=== PATIENT | male | born 1990 | race Caucasian/White ===

== ENCOUNTER 2016-10-26 23:42 | Inpatient (IN) | payer OTHER ==
[~2016-10-26] VITALS: Ht 182.9 cm; Wt 94.2 kg
[2016-10-27 01:53] LABS: MEAN CORPUSCULAR HEMOGLOBIN 28.3 pg (27.0-33.0); MEAN CORPUSCULAR HGB CONC 34.5 g/dl (32.0-36.5); MEAN CORPUSCULAR VOLUME 81.9 fl (80.0-96.0); RED CELL DISTRIBUTION WIDTH 12.5 % (11.5-14.5)
[2016-10-27 02:22] LABS: ALBUMIN 4.2 GM/DL (3.2-5.2); ALKALINE PHOSPHATASE 76 U/L (45-117); ALT/SGPT 46 U/L (12-78); ANION GAP 8 MEQ/L (8-16); AST/SGOT 33 U/L (15-37); BILIRUBIN,DIRECT < 0.1 MG/DL (0.0-0.2); BILIRUBIN,TOTAL 0.3 MG/DL (0.2-1.0); BLOOD UREA NITROGEN 9 MG/DL (7-18); CALCIUM LEVEL 8.6 MG/DL (8.5-10.1); CARBON DIOXIDE LEVEL 30 MEQ/L (21-32); CHLORIDE LEVEL 106 MEQ/L (98-107); CREATININE FOR GFR 1.07 MG/DL (0.70-1.30); GLOMERULAR FILTRATION RATE > 60.0 (>60); GLUCOSE, FASTING 104 MG/DL (70-105); POTASSIUM SERUM 4.3 MEQ/L (3.5-5.1); SODIUM LEVEL 144 MEQ/L (136-145); TOTAL PROTEIN 7.7 GM/DL (6.4-8.2)
[2016-10-27 03:03] LABS: AMPHETAMINES LEVEL URINE NEGATIVE (NEGATIVE)
[2016-10-27 03:04] LABS: BENZODIAZEPINES URINE NEGATIVE (NEGATIVE); COCAINE METABOLITE URINE NEGATIVE (NEGATIVE); CONTROL LINE INT CTR LINE PRESENT; METHADONE URINE NEGATIVE (NEGATIVE); OPIATES URINE NEGATIVE (NEGATIVE); TRICYCLIC ANTIDEPRESS URINE NEGATIVE (NEGATIVE)
[2016-10-27] MEDS ORDERED: ACETAMINOPHEN TAB 650MG DOSE (2X325MG) As Ordered ONE (09:45)
[2016-10-27] MEDS ORDERED: IBUP800T23 PO (10:48)
--- NOTE | 2016-10-27 15:13 | EDDOCDS ---
Physician Documentation [facility] Name: John Conti Age: 26 yrs Sex: Male : 1990 Arrival Date: 10/26/2016 Time: 23:42 Bed [facility] Private MD: Disposition: 10/27/16 10:36 Hospitalization ordered by Mauri Garcia for Inpatient Admission. Preliminary diagnosis is Major depressive disorder, single episode, moderate. - Bed requested for Admit. - Status is Inpatient Admission. me3 - Condition is Stable. - Problem is new. - Symptoms are unchanged. Historical: - Allergies: No known drug Allergies; - Home Meds: 1. Zoloft 25 mg Oral tab Unknown - PMHx: Anxiety; anger; - PSHx: Hip Arthroplasty, Left; bilateral ankles; - Social history: Smoking status: Patient states was never smoker of tobacco. Patient uses alcohol patient/guardian reports recent binge of alcohol consumption. No barriers to communication noted, The patient speaks fluent Dutch. - Family history: Not pertinent. - : The pt / caregiver states he / she is not on anticoagulants. Home medication list is obtained from the patient. - Exposure Risk Screening:: None identified. Vital Signs: 10/26 23:44 BP 132 / 88; Pulse 84; Resp 18; Temp 97.1(T); Pulse Ox 96% ; Weight 88.45 kg / 195 lbs; mas Height 6 ft. 0 in. (182.88 cm); Pain 0/10; 10/27 03:40 BP 144 / 85; Pulse 88; Resp 18; Temp 96.1(T); Pulse Ox 97% ; Pain 0/10; mas 10:30 Pain 0/10; me3 14:21 BP 143 / 91; Pulse 85; Resp 18; Temp 97.6(O); Pulse Ox 97% on R/A; Pain 2/10; jml1 15:12 BP 148 / 87; Pulse 77; Resp 18; Temp 96.2; Pulse Ox 98% ; me3 10/26 23:44 Body Mass Index 26.45 (88.45 kg, 182.88 cm) [facility] MDM: 01:37 Consult PFS/PSA/[employer] ordered. mm11 01:37 Consult PFS/PSA/[employer]: Patient's case requires discussion with on-call mm11 Psychiatrist ordered. 01:37 PSA/PFS to call Nursing Assistant Professor Of Theater, to enter patient data on [place] Safe Act if patient mm11 involuntarily admitted or transferred for SI or HI ordered. 01:37 Confirm accurate psychiatric medication list and times of last dosage ordered. mm11 01:37 Detain Pt Until Medically/PFS Cleared ordered. mm11 01:37 Acetaminophen Level Ordered. EDMS 01:37 Basic Metabolic Profile Ordered. EDMS 01:37 Complete Blood Count Ordered. EDMS 01:37 Drug Eval Toxicology ED Only Ordered. EDMS 01:37 Ethyl Alcohol (ethanol) Ordered. EDMS 01:37 Liver Profile Ordered. EDMS 01:37 Salicylate Level Ordered. EDMS 01:37 Thyroid Stimulating Hormone Ordered. EDMS 03:09 Acetaminophen Level Reviewed. mm11 03:09 Ethyl Alcohol (ethanol) Reviewed. mm11 03:09 Salicylate Level Reviewed. mm11 03:09 Thyroid Stimulating Hormone Reviewed. mm11 03:09 Basic Metabolic Profile Reviewed. mm11 03:09 Complete Blood Count Reviewed. mm11 03:09 Drug Eval Toxicology ED Only Reviewed. mm11 03:09 Liver Profile Reviewed. mm11 04:17 REGULAR DIET PLASTIC CASTANEDA+DIET ordered. EDMS 04:22 Financial registration complete. h 04:25 [facility] Payment Agreement was scanned into [employer] and attached to record. [facility] 09:41 Acetaminophen Tablet 650 mg PO once ordered. me3 09:49 Consult PFS/PSA/[employer] complete. ca 09:49 Consult PFS/PSA/[employer]: Patient's case requires discussion with on-call ca Psychiatrist complete. 09:49 PSA/PFS to call Nursing Assistant Professor Of Theater, to enter patient data [place] if patient ca involuntarily admitted or transferred for SI or HI complete. 11:16 REGULAR DIET PLASTIC CASTANEDA+DIET ordered. EDMS 12:03 Admit to [facility]: ordered. EDMS 13:46 [facility] Legal paperwork was scanned into [employer] and attached to record. ml4 Administered Medications: 09:46 Drug: Acetaminophen 650 mg [acetaminophen 325 mg tablet (2 tabs)] Route: PO; me3 10:30 Follow up: Pain 0/10 Adult; Response: Pain is resolved me3 Signatures: Dispatcher [employer] EDMS Donna Jimenez MD MD sd1 Ale Allen, PSA PSA Tiff Gil LPN LPN me3 Lupe Gutierrez, PSA PSA ml4 Jose Carlos Valera, DO DO mm11 Azalea Lee Amber,RN RN af2 The chart was reviewed and I authenticate all verbal orders and agree with the evaluation and treatment provided.Attachments: 04: [facility] Payment Agreement calvin MTDD
--- NOTE | 2016-10-27 15:13 | EDDOCDS ---
Nurse's Notes [facility] Name: John Conti Age: 26 yrs Sex: Male : 1990 Arrival Date: 10/26/2016 Time: 23:42 Bed [facility] Private MD: Diagnosis: Major depressive disorder, single episode, moderate Presentation: 10/26 23:50 Presenting complaint: pt found attempting to jump from bridge, PD on scene and talked af2 pt down after 50 minutes. Mental Health Triage Level: Level 2: The patient was brought to the ED for evaluation because of a legal pickup order. Adult Sepsis Screening: The patient does not have new or worsening altered mentation. Patient's respiratory rate is less than 22. Systolic blood pressure is greater than 100. Patient has a qSOFA score of 0- Negative Sepsis Screen. Suicide/Homicide risk assessment- The patient admits to and/or has been reported to be having suicidal ideations. 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 Transition of care: patient was not received from another setting of care. 23:50 Acuity: JACKIE Level 3 af2 23:50 Method Of Arrival: Police Car af2 Triage Assessment: 23:53 General: Appears in no apparent distress, Behavior is cooperative. Pain: Denies pain. af2 Pt Declines HIV testing. The patient is triaged at the bedside. See Assessment in Nurses Notes section of ED record. Respiratory: Airway is patent Respiratory effort is even, unlabored. Derm: Skin is normal. Historical: - Allergies: No known drug Allergies; - Home Meds: 1. Zoloft 25 mg Oral tab Unknown - PMHx: Anxiety; anger; - PSHx: Hip Arthroplasty, Left; bilateral ankles; - Social history: Smoking status: Patient states was never smoker of tobacco. Patient uses alcohol patient/guardian reports recent binge of alcohol consumption. No barriers to communication noted, The patient speaks fluent [place]. - Family history: Not pertinent. - : The pt / caregiver states he / she is not on anticoagulants. Home medication list is obtained from the patient. - Exposure Risk Screening:: None identified. Screenin/21 05:11 Screening information is obtained from the patient. Fall risk: No risks identified. m Nutritional screening: No deficits noted. 15:10 Assistance ADL's: requires no assistance with activities of daily living. Abuse/DV me3 Screen: The patient / caregiver reports he/she is: not in a situation that causes fear, pain or injury. Advance Directives: Currently, there is no health care proxy. There is no active DNR order. home support is adequate. Assessment: 00:14 General: Appears in no apparent distress, comfortable, Behavior is appropriate for age, slm cooperative. General: resting on stretcher security observing . Respiratory: No deficits noted. Airway is patent Respiratory effort is even, unlabored. Derm: Skin is pink, warm & dry. 01:10 General: Appears in no apparent distress, to be sleeping. Behavior is drowsy. General: slm pt asleep on stretcher security observing . Respiratory: Airway is patent Respiratory effort is even, unlabored. Derm: Skin is pink, warm & dry. 02:32 General: Appears in no apparent distress, Behavior is appropriate for age, cooperative. sls1 Neurological: Level of Consciousness is awake, alert. Respiratory: No deficits noted. 03:30 General: Appears in no apparent distress, comfortable, Behavior is appropriate for age, slm cooperative, pleasant. General: pt awake on phone security observing . Pain: Denies pain. Neurological: Level of Consciousness is awake, alert, obeys commands. Respiratory: Airway is patent Respiratory effort is even, unlabored. 04:30 General: Appears in no apparent distress, comfortable, to be sleeping. Behavior is slm cooperative, quiet. General: pt resting on stretcher security observing . Respiratory: Airway is patent Respiratory effort is even, unlabored. Derm: Skin is pink, warm & dry. 05:10 General: Appears in no apparent distress, comfortable, to be sleeping. Behavior is slm quiet. General: security observing . Respiratory: Airway is patent Respiratory effort is even, unlabored. Derm: Skin is pink, warm & dry. 06:26 General: Appears in no apparent distress, comfortable, to be sleeping. Behavior is slm quiet. General: pt resting on stretcher security observing . Respiratory: Airway is patent Respiratory pattern is regular. Derm: Skin is pink, warm & dry. 07:12 General: Appears in no apparent distress, to be sleeping. Behavior is quiet. me3 Respiratory: Airway is patent Respiratory effort is even, unlabored. Derm: Skin is pink, warm & dry. 08:15 General: Appears in no apparent distress, comfortable, to be sleeping. Behavior is me3 quiet. Respiratory: Airway is patent Respiratory effort is even, unlabored. Derm: Skin is pink, warm & dry. 09:17 General: Appears in no apparent distress, comfortable, to be sleeping. Behavior is. me3 Respiratory: No deficits noted. Airway is patent Respiratory effort is even, unlabored. Derm: Skin is pink, warm & dry. 09:29 Pain: Location: head Pain currently is 4 out of 10 on a pain scale. Quality of pain is me3 described as aching. 10:13 General: Appears in no apparent distress, comfortable, Behavior is cooperative, quiet. me3 Respiratory: No deficits noted. Airway is patent Respiratory effort is even, unlabored. Derm: Skin is pink, warm & dry. 11:56 General: Appears in no apparent distress, comfortable, Behavior is cooperative, me3 pleasant. Respiratory: No deficits noted. Airway is patent Respiratory effort is even, unlabored. Derm: Skin is pink, warm & dry. 12:10 General: Appears in no apparent distress, comfortable, Behavior is cooperative, me3 pleasant. Respiratory: Airway is patent Respiratory effort is even, unlabored. Derm: Skin is pink, warm & dry. 13:13 General: Appears in no apparent distress, comfortable, Behavior is cooperative. me3 Respiratory: Airway is patent. Derm: Skin is pink, warm & dry. 14:15 General: Appears in no apparent distress, comfortable, Behavior is cooperative. me3 Respiratory: Airway is patent Respiratory effort is even, unlabored. 15:10 General: Appears in no apparent distress, comfortable, Behavior is cooperative. me3 Respiratory: Airway is patent Respiratory effort is even, unlabored. Derm: Skin is pink, warm & dry. normal. Mental Health Eval: 10/26 23:43 Referral Information: Evaluation referral is generated by a police agency: [employer] on cl 9.41.. The patient was referred for evaluation because Pt reportedly expressed SI tonight?..Pt has been drinking tonight as well.. 10/27 09:49 Mental health consult is initiated at 09:50. 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 10:37 Subjective: The patients chief complaint is Pt states he was drinking with friends last ca night and went out walking afterward, ending up on the [facility] bridge. Police were called by unknown person, pt had to be talked off the bridge. Pt states he has only vague memory of events last night. 11:27 Mental Health history: anxiety, Mental Health Admissions: None. Current Outpatient dc Mental Health Services: None. Current living environment is Family / Home Support: Living with GF and 3 children (1 child is his) while ging through a divorce from his second . There are family stressors ongoing The patient is . Patient presents to Emergency Department with the following symptoms within the past 2 weeks: alcohol abuse, anxiety, marital problem, non-compliance, relational problem, sleep disturbance - erratic suicidal ideation with attempt/gesture by jumping off a structure. Substance abuse: Patient uses beer, of liquor. 11:47 Mental status exam: Patients appearance is appropriate, Patient's behavior is ca cooperative, Speech is normal. Affect is appropriate. Mood is appropriate. Hallucinations are denied. Appetite is normal. Memory is fair. Energy level is normal. Content of thought is normal. Thought process is intact. Cognitive level is oriented to person, place, time and situation Patient's insight is fair. Judgement is poor. Rapport with interviewer is good. Suicidal Ideation is denied. Homicidal ideation is denied. Disposition: Medically cleared for disposition by Donna Jimenez MD Psychiatric Consult is performed by phone with Dr Louie Person MD. [facility] Admission Criteria: The patient has had a suicide attempt in the recent past. Pt found intoxicated, standing on the [address] bridge last night, reportedly threatening to jump. Police were able to talk pt off the bridge. The patient requires continuous observation and/or control to protect self, others or property. The patient's care requires a multi-modal treatment plan under close supervision and coordination due to the complexity and severity of the patient's symptoms. Legal Status: Patient's legal status will be Emergency admission: . [place] Safe Act: [place] Safe Act is applicable to this patient. The patient poses a risk to self or other and the Nursing Micro Photographer has been notified. He/She will enter the patient's data. DSM-V Differential Diagnosis: Unspecified Anxiety Disorder (F41.9). Insurance Pre-Certification: Not Required, Pt has . Narrative: Pt cites multiple stressors as trigger for last night's behavior, including relationship stress, divorce proceedings (is from 2nd ) and financial issues. Pt says he does not normally drink as much as he did. States conversation with GF this morning was not good as she began yelling at him about the bills. Awaiting: transfer to [facility]. Vital Signs: 10/26 23:44 BP 132 / 88; Pulse 84; Resp 18; Temp 97.1(T); Pulse Ox 96% ; Weight 88.45 kg; Height 6 mas ft. 0 in. (182.88 cm); Pain 0/10; 10/27 03:40 BP 144 / 85; Pulse 88; Resp 18; Temp 96.1(T); Pulse Ox 97% ; Pain 0/10; mas 10:30 Pain 0/10; me3 14:21 BP 143 / 91; Pulse 85; Resp 18; Temp 97.6(O); Pulse Ox 97% on R/A; Pain 2/10; jml1 15:12 BP 148 / 87; Pulse 77; Resp 18; Temp 96.2; Pulse Ox 98% ; me3 10/26 23:44 Body Mass Index 26.45 (88.45 kg, 182.88 cm) [facility] Vitals: 09:20 Log In time N/A- police car arrival. ut3 ED Course: 10/26 23:43 Patient visited by Nat Devine. zo 23:43 Patient moved to Waiting zo 23:43 Patient moved to [facility] zo 23:51 Triage Initiated af2 23:53 Patient visited by Sonali Live,TRU. af2 10/27 00:13 Mary Sow LPN is Primary Nurse. slm 00:14 Patient visited by Mary Sow LPN. slm 00:31 Patient visited by Serg Emery. mas 00:51 Patient visited by Serg Emery. mas 01:00 Patient visited by Serg Emery. mas 01:16 Patient visited by Serg Emery. mas 01:30 Patient visited by Serg Emery. mas 01:31 Jose Carlos Valera DO is Attending Physician. mm11 01:31 Patient visited by Jose Carlos Valera DO. mm11 01:46 Acetaminophen Level Sent. slm 01:46 Basic Metabolic Profile Sent. slm 01:46 Complete Blood Count Sent. slm 01:46 Ethyl Alcohol (ethanol) Sent. slm 01:47 Patient visited by Mary Sow LPN. slm 01:47 Liver Profile Sent. slm 01:47 Salicylate Level Sent. slm 01:47 Thyroid Stimulating Hormone Sent. slm 01:51 No IV's were initiated during this patient's visit. No procedures done that require slm assistance. Labs drawn. (by ED staff). Sent per order to lab. 02:15 Patient visited by Mary Sow LPN. slm 02:32 Patient visited by Serg Emery. mas 02:33 Patient visited by Lucina Tompkins RN. sls1 02:47 Patient visited by Serg Emery. mas 02:50 Patient visited by Jose Carlos Valera DO. mm11 03:00 Patient visited by Serg Emery. mas 03:15 Patient visited by Serg Emery. mas 03:30 Patient visited by Serg Emery. mas 03:46 Patient visited by Serg Emery. mas 04:00 Patient visited by Serg Emery. mas 04:06 Patient visited by Mary Sow LPN. slm 04:15 Patient visited by Serg Emery. mas 04:22 Patient name changed from John\S\\S\Vancour\S\ to John\S\Peter\S\Vancour. EDMS 04:25 [facility] Payment Agreement was scanned into [employer] and attached to record. slh 04:30 Patient visited by Serg Emery. mas 04:45 Patient visited by Serg Emery. mas 04:57 Patient visited by Mary Sow LPN. slm 05:01 Patient visited by Serg Emery. mas 05:11 Patient visited by Mary Sow LPN. slm 05:27 Patient visited by Serg Emery. mas 05:30 Patient visited by Serg Emery. mas 05:46 Patient visited by Serg Emery. mas 06:09 Patient visited by Serg Emery. mas 06:15 Patient visited by Serg Emery. mas 06:27 Patient visited by Mary Sow LPN. slm 06:30 Patient visited by Serg Emery. mas 06:45 Patient visited by Lam Farris PCA. kb5 06:45 Patient visited by Serg Emery. mas 06:58 Attending Physician role handed off by Jose Carlos Valera DO sd1 06:58 Donna Jimenez MD is Attending Physician. sd1 07:05 Patient visited by Shree Cuenca Security Aide. pjf 07:15 Patient visited by Shree Cuenca Security Aide. pjf 07:32 Patient visited by Shree Cuenca Security Aide. pjf 07:46 Patient visited by Shree Cuenca Security Aide. pjf 08:04 Patient visited by Shree Cuenca Security Aide. pjf 08:17 Patient visited by Shree Cuenca Security Aide. pjf 08:30 Psych Safety Check: Location: Psych Room. Visual Assessment: Cooperative. pjf 08:44 Patient visited by Shree Cuenca Security Aide. pjf 09:04 Patient visited by Shree Cuenca Security Aide. pjf 09:20 The patient / caregiver is instructed regarding the plan of care and ED course. Diet me3 tray given. 09:33 Patient visited by Shree Cuenca Security Aide. pjf 09:47 Patient visited by Shree Cuenca Security Aide. pjf 10:02 Patient visited by Shree Cuenca Security Aide. pjf 10:20 Patient visited by Shree Cuenca Security Aide. pjf 10:36 Mauri Garcia MD is Hospitalizing Provider. sd1 11:08 Patient visited by Shree Cuenca Security Aide. pjf 11:25 Patient visited by Shree Cuenca Security Aide. pjf 11:41 Patient visited by Shree Cuenca Security Aide. pjf 11:56 Diet tray ordered. me3 12:36 Patient visited by Shree Cuenca Security Aide. pjf 12:50 Patient visited by Shree Cuenca Security Aide. pjf 13:13 Patient visited by Shree Cuenca Security Aide. pjf 13:29 Patient visited by Shree Cuenca Security Aide. pjf 13:46 [facility] Legal paperwork was scanned into [employer] and attached to record. ml4 13:51 Patient visited by Shree Cuenca Security Aide. pjf 14:02 Patient visited by Shree Cuenca Security Aide. pjf 14:14 Patient visited by Shree Cuenca Security Aide. pjf 14:35 Patient visited by Shree Cuenca Security Aide. pjf 14:58 Patient visited by Shree Cuenca Security Aide. pjf Administered Medications: 09:46 Drug: Acetaminophen 650 mg [acetaminophen 325 mg tablet (2 tabs)] Route: PO; me3 10:30 Follow up: Pain 0/10 Adult; Response: Pain is resolved me3 Attachments: 13:46 [facility] Legal paperwork ml4 Order Results: Lab Order: Acetaminophen Level; SPEC'M 10/27/16 01:43 Test: ACETAMINOPHEN LEVEL; Value: < 2.0; Range: 10.0-30.0; Abnormal: Below low normal; Units: UG/ML; Status: F Lab Order: Basic Metabolic Profile; SPEC'M 10/27/16 01:43 Test: GLUCOSE, FASTING; Value: 104; Range: 70-105; Units: MG/DL; Status: F Test: BLOOD UREA NITROGEN; Value: 9; Range: 7-18; Units: MG/DL; Status: F Test: CREATININE FOR GFR; Value: 1.07; Range: 0.70-1.30; Units: MG/DL; Status: F Test: GLOMERULAR FILTRATION RATE; Value: > 60.0; Range: >60; Status: F Test: SODIUM LEVEL; Value: 144; Range: 136-145; Units: MEQ/L; Status: F Test: POTASSIUM SERUM; Value: 4.3; Range: 3.5-5.1; Units: MEQ/L; Status: F Test: CHLORIDE LEVEL; Value: 106; Range: 98-107; Units: MEQ/L; Status: F Test: CARBON DIOXIDE LEVEL; Value: 30; Range: 21-32; Units: MEQ/L; Status: F Test: ANION GAP; Value: 8; Range: 8-16; Units: MEQ/L; Status: F Test: CALCIUM LEVEL; Value: 8.6; Range: 8.5-10.1; Units: MG/DL; Status: F Test Note: ; Units are mL/min/1.73 m2 Chronic Kidney Disease Staging per NKF: Stage I & II GFR >=60 Normal to Mildly Decreased Stage III GFR 30-59 Moderately Decreased Stage IV GFR 15-29 Severely Decreased Stage V GFR <15 Very Little GFR Left ESRD GFR <15 on COOKY MACHINE OPERATOR Lab Order: Complete Blood Count; SPEC'M 10/27/16 01:43 Test: WHITE BLOOD COUNT; Value: 9.0; Range: 4.0-10.0; Units: K/mm3; Status: F Test: RED BLOOD COUNT; Value: 6.04; Range: 4.30-6.10; Units: M/mm3; Status: F Test: HEMOGLOBIN; Value: 17.1; Range: 14.0-18.0; Units: g/dl; Status: F Test: HEMATOCRIT; Value: 49.4; Range: 42.0-52.0; Units: %; Status: F Test: MEAN CORPUSCULAR VOLUME; Value: 81.9; Range: 80.0-96.0; Units: fl; Status: F Test: MEAN CORPUSCULAR HEMOGLOBIN; Value: 28.3; Range: 27.0-33.0; Units: pg; Status: F Test: MEAN CORPUSCULAR HGB CONC; Value: 34.5; Range: 32.0-36.5; Units: g/dl; Status: F Test: RED CELL DISTRIBUTION WIDTH; Value: 12.5; Range: 11.5-14.5; Units: %; Status: F Test: PLATELET COUNT, AUTOMATED; Value: 326; Range: 150-450; Units: k/mm3; Status: F Lab Order: Drug Eval Toxicology ED Only; SPEC'M 10/27/16 02:47 Test: AMPHETAMINES LEVEL URINE; Value: NEGATIVE; Range: NEGATIVE; Status: F Test: BARBITURATES URINE; Value: NEGATIVE; Range: NEGATIVE; Status: F Test: BENZODIAZEPINES URINE; Value: NEGATIVE; Range: NEGATIVE; Status: F Test: CANNABINOIDS URINE; Value: NEGATIVE; Range: NEGATIVE; Status: F Test: COCAINE METABOLITE URINE; Value: NEGATIVE; Range: NEGATIVE; Status: F Test: METHADONE URINE; Value: NEGATIVE; Range: NEGATIVE; Status: F Test: OPIATES URINE; Value: NEGATIVE; Range: NEGATIVE; Status: F Test: TRICYCLIC ANTIDEPRESS URINE; Value: NEGATIVE; Range: NEGATIVE; Status: F Test Note: ; ALL PRESUMPTIVE POSITIVE FINDINGS ARE UNCONFIRMED NORMAL VALUES THRESHOLD IN NG/ML AMPHETAMINES 1000 METHAMPHETAMINES 1000 BARBITURATES 300 BENZODIAZEPINES 300 CANNABINOIDS (THC) 50 COCAINE METABOLITE 300 METHADONE 300 OPIATES 300 PHENCYCLIDINE 25 TRICYCLIC ANTIDEPRESSANTS 1000 RESULTS ARE FOR MEDICAL PURPOSES ONLY. ALL URINE SPECIMENS WILL BE SAVED FOR 3 DAYS. IF CONFIRMATION OF A PRESUMPTIVE POSTIVE SCREEN RESULT IS DESIRED, CALL CHEMISTRY ([phone]) AND REQUEST URINE TO BE SENT TO REFERENCE LAB. FOR A LIST OF CLOSELY RELATED COMPOUNDS PLEASE CALL THE LAB. Lab Order: Ethyl Alcohol (ethanol); SPEC' 10/27/16 01:43 Test: ETHYL ALCOHOL (ETHANOL); Value: 0.168; Range: 0.000-0.010; Abnormal: Above high normal; Units: %; Status: F Lab Order: Liver Profile; SPEC' 10/27/16 01:43 Test: AST/SGOT; Value: 33; Range: 15-37; Units: U/L; Status: F Test: ALT/SGPT; Value: 46; Range: 12-78; Units: U/L; Status: F Test: ALKALINE PHOSPHATASE; Value: 76; Range: 45-117; Units: U/L; Status: F Test: BILIRUBIN,TOTAL; Value: 0.3; Range: 0.2-1.0; Units: MG/DL; Status: F Test: BILIRUBIN,DIRECT; Value: < 0.1; Range: 0.0-0.2; Units: MG/DL; Status: F Test: TOTAL PROTEIN; Value: 7.7; Range: 6.4-8.2; Units: GM/DL; Status: F Test: ALBUMIN; Value: 4.2; Range: 3.2-5.2; Units: GM/DL; Status: F Test: ALBUMIN/GLOBULIN RATIO; Value: 1.20; Range: 1.00-1.93; Status: F Lab Order: Salicylate Level; SPEC' 10/27/16 01:43 Test: SALICYLATE LEVEL; Value: < 1.7; Range: 5.0-30.0; Abnormal: Below low normal; Units: MG/DL; Status: F Lab Order: Thyroid Stimulating Hormone; SPEC'M 10/27/16 01:43 Test: THYROID STIMULATING HORMONE; Value: 0.246; Range: 0.358-3.740; Abnormal: Below low normal; Units: uIU/ML; Status: F Outcome: 10:36 Decision to Hospitalize by Provider. sd1 15:10 Discharge Assessment: patient administered narcotics - no. The following High Risk me3 Discharge criteria are identified: None. Admitted to Psych accompanied by tech, via wheelchair, with chart. Condition: stable. No special radiology studies were completed. Property left with pt per RNAnyi LPN. 15:12 Patient left the ED. me3 Signatures: Dispatcher [employer] EDMS Donna Jimenez MD MD sd1 Ale Allen, PSA PSA ca Abdoul Tucker, PSA PSA cl Shree Cuenca, Security Aide Tiff Jean-Baptiste LPN LPN me3 Lupe Gutierrez, PSA PSA ml4 Nat Devine Kristopher, INFORMATION SYSTEMS MANAGER INFORMATION SYSTEMS MANAGER kb5 Jose Carlos Valera, DO mm11 Serg Emery Shannon, RN RN sls1 Behzad Brewster Stephanie, LPN LPN slm Hook, Sandra slh [place], Amber,RN RN af2 MTDD
[2016-10-27 16:15] VITALS: BP 140/93
[2016-10-27] MEDS ORDERED: IBUPROFEN 400 MG TAB PO PRN (16:15)
[2016-10-27] MEDS ORDERED: MOM 30ML SUSPENSION UDC PO PRN (16:15)
[2016-10-27] MEDS ORDERED: traZODone 50 MG TAB PO PRN (16:15)
[2016-10-27] MEDS ORDERED: ACETAMINOPHEN TAB 650MG DOSE (2X325MG) PO PRN (16:15)
[2016-10-28 06:48] VITALS: BP 160/75
[2016-10-28] MEDS ORDERED: FLUoxetine 10 MG CAP PO ONE (14:00)
[2016-10-28] MEDS ORDERED: hydrOXYzine 50 MG TAB PO PRN (15:30)
[2016-10-28] MEDS ORDERED: traZODone 50 MG TAB PO PRN (15:30)
--- NOTE | 2016-10-28 16:03 | HPEPDOC ---
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 Patient states he had been out to lunch with friends and had had 3 cocktails, adds he and friends continued to drink throughout the day, with back to friend's apartment, laid down, and at some point got up and walked to a nearby bridge. Patient indicates he remembers nothing of the event. Per ER records, patient was threatening to jump off bridge in an intoxicated state and police spent 50 minutes trying to stop patient from jumping. Patient rates current anxiety level as 6/10, depression 2/10, denies suicidal and homicidal ideation, denies audiovisual hallucinations, denies urge to engage in self-injurious behavior. Patient states to abstract writer, "I've been trying to piece things together and I just can't make sense of it, I must of blacked out, I've never done anything like that before." Patient indicates he has been experiencing an increase in symptoms of anxiety related to pending divorce from second marriage, relationship stress, financial strain. Patient denies history of suicide attempt, suicidal ideation, and self-injurious behavior. Patient reports discomfort in large crowds but denies social anxiety type symptoms, denies panic, impulse control, compulsive behaviors, further denies history of unsanctioned violence and states outside of work he has no access to weapons. Patient denies symptoms of reexperiencing, negative cognitions, avoidance, or hypervigilance. Patient indicates his mood is level and he denies a history of lability, hypomania, or korin symptoms, states his appetite is normal. Patient indicates he sleeps 4-5 hours a night and describes his sleep pattern as " normal for me," states he does not feel well if he sleeps more than 5 or 6 hours per night, denies nightmares symptoms and denies challenges with sleep latency or maintenance. Patient indicates he has been in the for 9 years, with 2 deployments to [place], was previously stationed in [place] and relocated to [place] in June,. Patient states while stationed in [place] he sought treatment through outpatient behavioral health and was prescribed Zoloft to address symptoms of anxiety and anger and trazodone to address sleep challenges , states he had been taking medication since 2010. Patient indicates he stopped taking medication approximately 4 months ago due to lack of need, also states he was experiencing side effects of apathy and "head zaps." Patient denies recently experiencing symptoms of anger or unmanageable anxiety for the past year. Patient expresses concern during today's assessment noting he is scheduled to go to [facility] 11/12/16, indicates he wants to go and is afraid he will be put on a no weapons profile. PAST PSYCHIATRIC HISTORY: Prior Psychiatric Disorder: Patient indicates he participated in outpatient treatment in [place] for anger and anxiety Outpatient Treatment: Patient behavioral health through the [employer] in [place] from 2010 until 2014. Suicidal/Self injurious: Patient denies history of self-harm, suicide attempt, further indicates he is never experienced suicidal ideation. Psychotropic Medication History: Trazodone - no medication side effects. Zoloft - flat affect, "jar to the head" type symptoms ALLERGIES: Please see below. HOME MEDICATIONS: See below PAST MEDICAL/SURGICAL HISTORY: Patient denies history of seizure or head injury , reports history of hip arthroplasty. Labs within normal limits on admission with exception of TSH which was low. BAL on admission 0.168 FAMILY PSYCHIATRIC HISTORY: Sisters - bipolar disorder Patient denies family history of suicide attempt SOCIAL HISTORY: Patient was born and raised in the [facility] area, raised by his mother, indicates he has only periodic contact with his biological father who lives [facility]. Patient denies history of abuse, trauma , or witnessing domestic violence in the home while growing up. Patient completed his GED, denies having work history prior to the , joined the [employer] at age 17 and [employer]. Patient has history of deployment to [place] 2, endorses combat exposure. Patient has been legally 1 year, has been 2, and is currently in divorce process with second , has a girlfriend with whom he is been together on and off and has a 1-year- old son, also has a 5-year-old son with whom he has no contact from previous relationship. Patient indicates he feels he has adequate support system. SUBSTANCE ABUSE HISTORY: Patient reports monthly alcohol use, indicates he consumes approximately 1-2 drinks per drinking episode, denies history of other substance use or abuse. LEGAL HISTORY: Patient indicates he was arrested for grand larceny which was reduced to barlow larceny which was reduced to disorderly conduct as a teenager, denies other legal challenges. Patient has pending divorce. VITAL SIGNS: B/P 160/75, P 103, R 18, T 98.7. On recheck: B/P 120/72, P 80, R 16, T 98.6 LABORATORY DATA: Labs completed on admission within normal limits with exception of low TSH. BAL 0.188 on admission. 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 Speech: Is of normal rate, rhythm, volume, coherent, spontaneous Language skills are intact. Thought processes: Clear, goal-directed. Thought content: Rational, logical, no paranoia noted. Abstract reasoning: Appears intact Description of associations: Intact. Description of abnormal or psychotic thoughts: Denies hallucinations, delusions , preoccupation with violence, homicidal or suicidal ideation, and obsessions]. Judgment: Fair. Insight: Limited. Orientation to [time, place and person]. Recent and remote memory: Intact Attention span and concentration: Adequate. Language: [Normal]. Fund of knowledge: Adequate. Mood: "Pretty mellow right now," no irritability, agitation, mood lability noted. Affect: Mild constriction, brightens 1, generally congruent with affect. 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 Patient appears to be slowly adjusting to unit, has been isolative to room, is pleasant and cooperative, engageable at time of assessment. Patient tends to minimize his behavior and the events which led to his current hospitalization, informs abstract writer he has never had a problem with alcohol before and denies history of other substance use or abuse. Patient expresses concern about recent alcohol episode and current hospitalizations impact on his [employer] career, states he is scheduled to attend [facility] in early November and wants to go. Patient informs abstract writer he has been undergoing stressors involving divorce and relationship tension which has resulted in increased levels of anxiety and some depression, states he took Zoloft in the past with good effect, reports side effects and is requesting new medication trial at this time. Patient denies need for trazodone for sleep, is aware medication remains available to him on an as-needed basis. Will educate patient on medication options, initiate med trial, monitor for side effects, evaluate patient's safety, resolution of suicidal thinking, and discharge readiness. Patient informs abstract writer his discharge plan will be to return to [place] to participate in outpatient psychotherapy and medication management, verbalizes awareness that recommendation will be made for him to participate in the [facility] program as well. PROBLEM LIST: Suicidal ideation/possible attempt Depression Anxiety Pending divorce Relationship tension Substance abuse Limited coping mechanisms INITIAL TREATMENT PLAN: 1. Patient was admitted on a [9.39] legal status. 2. Complete history was obtained. 3. With patients permission, family will be contacted and database will be expanded. 4. Patients medication regimen will be reviewed and changed accordingly. 5. Patient will be provided with protected environment. 6. Patient will be treated with individual, group, and milieu therapies. 7. Patient will receive supportive psych-education. 8. Discharge planning will commence immediately. 9. Outpatient follow-up treatment will be strongly recommended. 10. The initial treatment plan will focus initially on: * Depression. * Risk for suicide. * Substance abuse. ESTIMATED LENGTH OF STAY: 5-7 DAYS. TIME SPENT COUNSELING AND COORDINATING INITIAL CARE: 55 minutes. Medications Scheduled PRN Ibuprofen (Ibuprofen) 800 Mg Tab 800 MG PO TID PRN PRN HEADACHE (Reported) Allergies Coded Allergies: Penicillins (Unverified Allergy, Unknown, HIVES, 10/27/16) Sandra Ludwig Oct 28, 2016 16:03 Sandra Ludwig Oct 28, 2016 16:03
[2016-10-28 18:00] VITALS: BP 120/72
[2016-10-29 06:50] VITALS: BP 114/71
--- NOTE | 2016-10-29 08:17 | HPE ---
DATE OF ADMISSION: 10/27/2016 HISTORY OF PRESENT ILLNESS: Please refer to the psychiatric history and evaluation for further details on this admission. This evaluation is intended for medical issues, which may need treatment, followup or consultation on this 26-year-old male. MEDICAL PRIMARY CARE PROVIDER: [facility] ALLERGIES: PENICILLIN. SOCIAL HISTORY: He is . He is getting . 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 He has a previous marriage with one child and a girlfriend who had one child. Ethyl alcohol (EtOH): Monthly. Smokes: None. Recreational drug use: None. PAST MEDICAL HISTORY: Negative. PAST SURGICAL HISTORY: Bilateral photorefractive keratectomy (PRK) left hip arthroplasty, removal of bone spur left ankle, repair of fracture 5th finger. HOME MEDICATIONS: - ibuprofen 800 mg one by mouth every 8 hours as needed for pain FAMILY HISTORY: Noncontributory. LABORATORY STUDIES: Hematology normal. Chemistry normal except for a slightly low TSH of 0.246. EtOH was 0.168. 10-systems review was done. Patient felt a little tired. Otherwise, unremarkable. PHYSICAL EXAMINATION: 26-year-old, cooperative male, in no acute distress. Patient is alert and oriented times three. Height 72 inches. Weight 88.4 kg. Body mass index (BMI) 26.4. Blood pressure 140/90. Pulse 88. Respirations 16. Temperature 97.4. Pupils equal and reactive to light. Extraocular movements (EOMs) intact. Cornea and sclera clear. Conjunctiva was normal. No facial asymmetry. Pharynx, tongue and gum is pink and moist. Tongue is midline. Neck is supple, without lymphadenopathy. No thyromegaly. No goiter. Carotids 2+ without bruit. Chest clear to auscultation, without wheeze or retraction. Heart is regular. Abdomen benign. Bowel sounds positive. Genitourinary()/rectal not done. Extremities show equal strength, full range of motion. No cyanosis, clubbing, or edema. IMPRESSION AND PLAN: 1. Psychiatric. Plan per psychiatry. 2. Recheck thyroid profile in the in the morning. Thyroid-stimulating hormone (TSH) was slightly low. 3. No acute medical issues.
[2016-10-29] MEDS: FLUoxetine 20 MG CAP PO SCH (09:32)
--- NOTE | 2016-10-29 16:14 | EDDOCDS ---
Nurse's Notes [facility] Name: John Conti Age: 26 yrs Sex: Male : 1990 Arrival Date: 10/26/2016 Time: 23:42 Bed [facility] Private MD: Diagnosis: Major depressive disorder, single episode, moderate Presentation: 10/26 23:50 Presenting complaint: pt found attempting to jump from bridge, PD on scene and talked af2 pt down after 50 minutes. Mental Health Triage Level: Level 2: The patient was brought to the ED for evaluation because of a legal pickup order. Adult Sepsis Screening: The patient does not have new or worsening altered mentation. Patient's respiratory rate is less than 22. Systolic blood pressure is greater than 100. Patient has a qSOFA score of 0- Negative Sepsis Screen. Suicide/Homicide risk assessment- The patient admits to and/or has been reported to be having suicidal ideations. 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 Transition of care: patient was not received from another setting of care. 23:50 Acuity: JACKIE Level 3 af2 23:50 Method Of Arrival: Police Car af2 Triage Assessment: 23:53 General: Appears in no apparent distress, Behavior is cooperative. Pain: Denies pain. af2 Pt Declines HIV testing. The patient is triaged at the bedside. See Assessment in Nurses Notes section of ED record. Respiratory: Airway is patent Respiratory effort is even, unlabored. Derm: Skin is normal. Historical: - Allergies: No known drug Allergies; - Home Meds: 1. Zoloft 25 mg Oral tab Unknown - PMHx: Anxiety; anger; - PSHx: Hip Arthroplasty, Left; bilateral ankles; - Social history: Smoking status: Patient states was never smoker of tobacco. Patient uses alcohol patient/guardian reports recent binge of alcohol consumption. No barriers to communication noted, The patient speaks fluent [place] Leonean. - Family history: Not pertinent. - : The pt / caregiver states he / she is not on anticoagulants. Home medication list is obtained from the patient. - Exposure Risk Screening:: None identified. Screenin/21 05:11 Screening information is obtained from the patient. Fall risk: No risks identified. m Nutritional screening: No deficits noted. 15:10 Assistance ADL's: requires no assistance with activities of daily living. Abuse/DV me3 Screen: The patient / caregiver reports he/she is: not in a situation that causes fear, pain or injury. Advance Directives: Currently, there is no health care proxy. There is no active DNR order. home support is adequate. Assessment: 00:14 General: Appears in no apparent distress, comfortable, Behavior is appropriate for age, slm cooperative. General: resting on stretcher security observing . Respiratory: No deficits noted. Airway is patent Respiratory effort is even, unlabored. Derm: Skin is pink, warm & dry. 01:10 General: Appears in no apparent distress, to be sleeping. Behavior is drowsy. General: slm pt asleep on stretcher security observing . Respiratory: Airway is patent Respiratory effort is even, unlabored. Derm: Skin is pink, warm & dry. 02:32 General: Appears in no apparent distress, Behavior is appropriate for age, cooperative. sls1 Neurological: Level of Consciousness is awake, alert. Respiratory: No deficits noted. 03:30 General: Appears in no apparent distress, comfortable, Behavior is appropriate for age, slm cooperative, pleasant. General: pt awake on phone security observing . Pain: Denies pain. Neurological: Level of Consciousness is awake, alert, obeys commands. Respiratory: Airway is patent Respiratory effort is even, unlabored. 04:30 General: Appears in no apparent distress, comfortable, to be sleeping. Behavior is slm cooperative, quiet. General: pt resting on stretcher security observing . Respiratory: Airway is patent Respiratory effort is even, unlabored. Derm: Skin is pink, warm & dry. 05:10 General: Appears in no apparent distress, comfortable, to be sleeping. Behavior is slm quiet. General: security observing . Respiratory: Airway is patent Respiratory effort is even, unlabored. Derm: Skin is pink, warm & dry. 06:26 General: Appears in no apparent distress, comfortable, to be sleeping. Behavior is slm quiet. General: pt resting on stretcher security observing . Respiratory: Airway is patent Respiratory pattern is regular. Derm: Skin is pink, warm & dry. 07:12 General: Appears in no apparent distress, to be sleeping. Behavior is quiet. me3 Respiratory: Airway is patent Respiratory effort is even, unlabored. Derm: Skin is pink, warm & dry. 08:15 General: Appears in no apparent distress, comfortable, to be sleeping. Behavior is me3 quiet. Respiratory: Airway is patent Respiratory effort is even, unlabored. Derm: Skin is pink, warm & dry. 09:17 General: Appears in no apparent distress, comfortable, to be sleeping. Behavior is. me3 Respiratory: No deficits noted. Airway is patent Respiratory effort is even, unlabored. Derm: Skin is pink, warm & dry. 09:29 Pain: Location: head Pain currently is 4 out of 10 on a pain scale. Quality of pain is me3 described as aching. 10:13 General: Appears in no apparent distress, comfortable, Behavior is cooperative, quiet. me3 Respiratory: No deficits noted. Airway is patent Respiratory effort is even, unlabored. Derm: Skin is pink, warm & dry. 11:56 General: Appears in no apparent distress, comfortable, Behavior is cooperative, me3 pleasant. Respiratory: No deficits noted. Airway is patent Respiratory effort is even, unlabored. Derm: Skin is pink, warm & dry. 12:10 General: Appears in no apparent distress, comfortable, Behavior is cooperative, me3 pleasant. Respiratory: Airway is patent Respiratory effort is even, unlabored. Derm: Skin is pink, warm & dry. 13:13 General: Appears in no apparent distress, comfortable, Behavior is cooperative. me3 Respiratory: Airway is patent. Derm: Skin is pink, warm & dry. 14:15 General: Appears in no apparent distress, comfortable, Behavior is cooperative. me3 Respiratory: Airway is patent Respiratory effort is even, unlabored. 15:10 General: Appears in no apparent distress, comfortable, Behavior is cooperative. me3 Respiratory: Airway is patent Respiratory effort is even, unlabored. Derm: Skin is pink, warm & dry. normal. Mental Health Eval: 10/26 23:43 Referral Information: Evaluation referral is generated by a police agency: [employer] on cl 9.41.. The patient was referred for evaluation because Pt reportedly expressed SI tonight?..Pt has been drinking tonight as well.. 10/27 09:49 Mental health consult is initiated at 09:50. 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 10:37 Subjective: The patients chief complaint is Pt states he was drinking with friends last ca night and went out walking afterward, ending up on the [facility] bridge. Police were called by unknown person, pt had to be talked off the bridge. Pt states he has only vague memory of events last night. 11:27 Mental Health history: anxiety, Mental Health Admissions: None. Current Outpatient [place] Mental Health Services: None. Current living environment is Family / Home Support: Living with GF and 3 children (1 child is his) while ging through a divorce from his second . There are family stressors ongoing The patient is . Patient presents to Emergency Department with the following symptoms within the past 2 weeks: alcohol abuse, anxiety, marital problem, non-compliance, relational problem, sleep disturbance - erratic suicidal ideation with attempt/gesture by jumping off a structure. Substance abuse: Patient uses beer, of liquor. 11:47 Mental status exam: Patients appearance is appropriate, Patient's behavior is ca cooperative, Speech is normal. Affect is appropriate. Mood is appropriate. Hallucinations are denied. Appetite is normal. Memory is fair. Energy level is normal. Content of thought is normal. Thought process is intact. Cognitive level is oriented to person, place, time and situation Patient's insight is fair. Judgement is poor. Rapport with interviewer is good. Suicidal Ideation is denied. Homicidal ideation is denied. Disposition: Medically cleared for disposition by Donna Jimenez MD Psychiatric Consult is performed by phone with Dr Louie Person MD. [facility] Admission Criteria: The patient has had a suicide attempt in the recent past. Pt found intoxicated, standing on the [address] bridge last night, reportedly threatening to jump. Police were able to talk pt off the bridge. The patient requires continuous observation and/or control to protect self, others or property. The patient's care requires a multi-modal treatment plan under close supervision and coordination due to the complexity and severity of the patient's symptoms. Legal Status: Patient's legal status will be Emergency admission: . [place] Safe Act: [place] Safe Act is applicable to this patient. The patient poses a risk to self or other and the Nursing Fib[employer] Autobody Repairer has been notified. He/She will enter the patient's data. DSM-V Differential Diagnosis: Unspecified Anxiety Disorder (F41.9). Insurance Pre-Certification: Not Required, Pt has . Narrative: Pt cites multiple stressors as trigger for last night's behavior, including relationship stress, divorce proceedings (is from 2nd ) and financial issues. Pt says he does not normally drink as much as he did. States conversation with GF this morning was not good as she began yelling at him about the bills. Awaiting: transfer to [facility]. Vital Signs: 10/26 23:44 BP 132 / 88; Pulse 84; Resp 18; Temp 97.1(T); Pulse Ox 96% ; Weight 88.45 kg; Height 6 mas ft. 0 in. (182.88 cm); Pain 0/10; 10/27 03:40 BP 144 / 85; Pulse 88; Resp 18; Temp 96.1(T); Pulse Ox 97% ; Pain 0/10; mas 10:30 Pain 0/10; me3 14:21 BP 143 / 91; Pulse 85; Resp 18; Temp 97.6(O); Pulse Ox 97% on R/A; Pain 2/10; jml1 15:12 BP 148 / 87; Pulse 77; Resp 18; Temp 96.2; Pulse Ox 98% ; me3 10/26 23:44 Body Mass Index 26.45 (88.45 kg, 182.88 cm) [facility] Vitals: 09:20 Log In time N/A- police car arrival. az3 ED Course: 10/26 23:43 Patient visited by Nat Devine. zo 23:43 Patient moved to Waiting zo 23:43 Patient moved to [facility] zo 23:51 Triage Initiated af2 23:53 Patient visited by Sonali Live,TRU. af2 10/27 00:13 Mary Sow LPN is Primary Nurse. slm 00:14 Patient visited by Mary Sow LPN. slm 00:31 Patient visited by Serg Emery. mas 00:51 Patient visited by Serg Emery. mas 01:00 Patient visited by eSrg Emery. mas 01:16 Patient visited by Serg Emery. mas 01:30 Patient visited by Serg Emery. mas 01:31 Jose Carlos Valera DO is Attending Physician. mm11 01:31 Patient visited by Jose Carlos Valera DO. mm11 01:46 Acetaminophen Level Sent. slm 01:46 Basic Metabolic Profile Sent. slm 01:46 Complete Blood Count Sent. slm 01:46 Ethyl Alcohol (ethanol) Sent. slm 01:47 Patient visited by Mary Sow LPN. slm 01:47 Liver Profile Sent. slm 01:47 Salicylate Level Sent. slm 01:47 Thyroid Stimulating Hormone Sent. slm 01:51 No IV's were initiated during this patient's visit. No procedures done that require slm assistance. Labs drawn. (by ED staff). Sent per order to lab. 02:15 Patient visited by Mary Sow LPN. slm 02:32 Patient visited by Serg Emery. mas 02:33 Patient visited by Lucina Tompknis RN. sls1 02:47 Patient visited by Serg Emery. mas 02:50 Patient visited by Jose Carlos Valera DO. mm11 03:00 Patient visited by Serg Emery. mas 03:15 Patient visited by Serg Emery. mas 03:30 Patient visited by Serg Emery. mas 03:46 Patient visited by Serg Emery. mas 04:00 Patient visited by Serg Emery. mas 04:06 Patient visited by Mary Sow LPN. slm 04:15 Patient visited by Serg Emery. mas 04:22 Patient name changed from John\S\\S\Vancour\S\ to John\S\Peter\S\Vancour. EDMS 04:25 [facility] Payment Agreement was scanned into [employer] and attached to record. slh 04:30 Patient visited by Serg Emery. mas 04:45 Patient visited by Serg Emery. mas 04:57 Patient visited by Mary Sow LPN. slm 05:01 Patient visited by Serg Emery. mas 05:11 Patient visited by Mary Swo LPN. slm 05:27 Patient visited by Serg Emery. mas 05:30 Patient visited by Serg Emery. mas 05:46 Patient visited by Serg Emery. mas 06:09 Patient visited by Serg Emery. mas 06:15 Patient visited by Serg Emery. mas 06:27 Patient visited by Mary Sow LPN. slm 06:30 Patient visited by Serg Emery. mas 06:45 Patient visited by Lam Farris PCA. kb5 06:45 Patient visited by Serg Emery. mas 06:58 Attending Physician role handed off by Jose Carlos Valera DO sd1 06:58 Donna Jimenez MD is Attending Physician. sd1 07:05 Patient visited by Shree Cuenca Security Aide. pjf 07:15 Patient visited by Shree Cuenca Security Aide. pjf 07:32 Patient visited by Shree Cuenca Security Aide. pjf 07:46 Patient visited by Shree Cuenca Security Aide. pjf 08:04 Patient visited by Shree Cuenca Security Aide. pjf 08:17 Patient visited by Shree Cuenca Security Aide. pjf 08:30 Psych Safety Check: Location: Psych Room. Visual Assessment: Cooperative. pjf 08:44 Patient visited by Shree Cuenca Security Aide. pjf 09:04 Patient visited by Shree Cuenca Security Aide. pjf 09:20 The patient / caregiver is instructed regarding the plan of care and ED course. Diet me3 tray given. 09:33 Patient visited by Shree Cuenca Security Aide. pjf 09:47 Patient visited by Shree Cuenca Security Aide. pjf 10:02 Patient visited by Shree Cuenca Security Aide. pjf 10:20 Patient visited by Shree Cuenca Security Aide. pjf 10:36 Mauri Garcia MD is Hospitalizing Provider. sd1 11:08 Patient visited by Shree Cuenca Security Aide. pjf 11:25 Patient visited by Shree Cuenca Security Aide. pjf 11:41 Patient visited by Shree Cuenca Security Aide. pjf 11:56 Diet tray ordered. me3 12:36 Patient visited by Shree Cuenca Security Aide. pjf 12:50 Patient visited by Shree Cuenca Security Aide. pjf 13:13 Patient visited by Shree Cuenca Security Aide. pjf 13:29 Patient visited by Shree Cuenca Security Aide. pjf 13:46 [facility] Legal paperwork was scanned into [employer] and attached to record. ml4 13:51 Patient visited by Shree Cuenca Security Aide. pjf 14:02 Patient visited by Shree Cuenca Security Aide. pjf 14:14 Patient visited by Shree Cuenca Security Aide. pjf 14:35 Patient visited by Shree Cuenca Security Aide. pjf 14:58 Patient visited by Shree Cuenca Security Aide. f 10/28 14:41 T-Sheet-- Draft Copy was scanned into [employer] and attached to record. gb Administered Medications: 10/27 09:46 Drug: Acetaminophen 650 mg [acetaminophen 325 mg tablet (2 tabs)] Route: PO; me3 10:30 Follow up: Pain 0/10 Adult; Response: Pain is resolved me3 Attachments: 13:46 [facility] Legal paperwork ml4 Order Results: Lab Order: Acetaminophen Level; SPEC'M 10/27/16 01:43 Test: ACETAMINOPHEN LEVEL; Value: < 2.0; Range: 10.0-30.0; Abnormal: Below low normal; Units: UG/ML; Status: F Lab Order: Basic Metabolic Profile; SPEC'M 10/27/16 01:43 Test: GLUCOSE, FASTING; Value: 104; Range: 70-105; Units: MG/DL; Status: F Test: BLOOD UREA NITROGEN; Value: 9; Range: 7-18; Units: MG/DL; Status: F Test: CREATININE FOR GFR; Value: 1.07; Range: 0.70-1.30; Units: MG/DL; Status: F Test: GLOMERULAR FILTRATION RATE; Value: > 60.0; Range: >60; Status: F Test: SODIUM LEVEL; Value: 144; Range: 136-145; Units: MEQ/L; Status: F Test: POTASSIUM SERUM; Value: 4.3; Range: 3.5-5.1; Units: MEQ/L; Status: F Test: CHLORIDE LEVEL; Value: 106; Range: 98-107; Units: MEQ/L; Status: F Test: CARBON DIOXIDE LEVEL; Value: 30; Range: 21-32; Units: MEQ/L; Status: F Test: ANION GAP; Value: 8; Range: 8-16; Units: MEQ/L; Status: F Test: CALCIUM LEVEL; Value: 8.6; Range: 8.5-10.1; Units: MG/DL; Status: F Test Note: ; Units are mL/min/1.73 m2 Chronic Kidney Disease Staging per NKF: Stage I & II GFR >=60 Normal to Mildly Decreased Stage III GFR 30-59 Moderately Decreased Stage IV GFR 15-29 Severely Decreased Stage V GFR <15 Very Little GFR Left ESRD GFR <15 on INFORMATION TECHNOLOGY AUDIT MANAGER Lab Order: Complete Blood Count; SPEC10/27/16 01:43 Test: WHITE BLOOD COUNT; Value: 9.0; Range: 4.0-10.0; Units: K/mm3; Status: F Test: RED BLOOD COUNT; Value: 6.04; Range: 4.30-6.10; Units: M/mm3; Status: F Test: HEMOGLOBIN; Value: 17.1; Range: 14.0-18.0; Units: g/dl; Status: F Test: HEMATOCRIT; Value: 49.4; Range: 42.0-52.0; Units: %; Status: F Test: MEAN CORPUSCULAR VOLUME; Value: 81.9; Range: 80.0-96.0; Units: fl; Status: F Test: MEAN CORPUSCULAR HEMOGLOBIN; Value: 28.3; Range: 27.0-33.0; Units: pg; Status: F Test: MEAN CORPUSCULAR HGB CONC; Value: 34.5; Range: 32.0-36.5; Units: g/dl; Status: F Test: RED CELL DISTRIBUTION WIDTH; Value: 12.5; Range: 11.5-14.5; Units: %; Status: F Test: PLATELET COUNT, AUTOMATED; Value: 326; Range: 150-450; Units: k/mm3; Status: F Lab Order: Drug Eval Toxicology ED Only; SPEC10/27/16 02:47 Test: AMPHETAMINES LEVEL URINE; Value: NEGATIVE; Range: NEGATIVE; Status: F Test: BARBITURATES URINE; Value: NEGATIVE; Range: NEGATIVE; Status: F Test: BENZODIAZEPINES URINE; Value: NEGATIVE; Range: NEGATIVE; Status: F Test: CANNABINOIDS URINE; Value: NEGATIVE; Range: NEGATIVE; Status: F Test: COCAINE METABOLITE URINE; Value: NEGATIVE; Range: NEGATIVE; Status: F Test: METHADONE URINE; Value: NEGATIVE; Range: NEGATIVE; Status: F Test: OPIATES URINE; Value: NEGATIVE; Range: NEGATIVE; Status: F Test: TRICYCLIC ANTIDEPRESS URINE; Value: NEGATIVE; Range: NEGATIVE; Status: F Test Note: ; ALL PRESUMPTIVE POSITIVE FINDINGS ARE UNCONFIRMED NORMAL VALUES THRESHOLD IN NG/ML AMPHETAMINES 1000 METHAMPHETAMINES 1000 BARBITURATES 300 BENZODIAZEPINES 300 CANNABINOIDS (THC) 50 COCAINE METABOLITE 300 METHADONE 300 OPIATES 300 PHENCYCLIDINE 25 TRICYCLIC ANTIDEPRESSANTS 1000 RESULTS ARE FOR MEDICAL PURPOSES ONLY. ALL URINE SPECIMENS WILL BE SAVED FOR 3 DAYS. IF CONFIRMATION OF A PRESUMPTIVE POSTIVE SCREEN RESULT IS DESIRED, CALL CHEMISTRY ([phone]) AND REQUEST URINE TO BE SENT TO REFERENCE LAB. FOR A LIST OF CLOSELY RELATED COMPOUNDS PLEASE CALL THE LAB. Lab Order: Ethyl Alcohol (ethanol); SPEC'M 10/27/16 01:43 Test: ETHYL ALCOHOL (ETHANOL); Value: 0.168; Range: 0.000-0.010; Abnormal: Above high normal; Units: %; Status: F Lab Order: Liver Profile; SPEC'M 10/27/16 01:43 Test: AST/SGOT; Value: 33; Range: 15-37; Units: U/L; Status: F Test: ALT/SGPT; Value: 46; Range: 12-78; Units: U/L; Status: F Test: ALKALINE PHOSPHATASE; Value: 76; Range: 45-117; Units: U/L; Status: F Test: BILIRUBIN,TOTAL; Value: 0.3; Range: 0.2-1.0; Units: MG/DL; Status: F Test: BILIRUBIN,DIRECT; Value: < 0.1; Range: 0.0-0.2; Units: MG/DL; Status: F Test: TOTAL PROTEIN; Value: 7.7; Range: 6.4-8.2; Units: GM/DL; Status: F Test: ALBUMIN; Value: 4.2; Range: 3.2-5.2; Units: GM/DL; Status: F Test: ALBUMIN/GLOBULIN RATIO; Value: 1.20; Range: 1.00-1.93; Status: F Lab Order: Salicylate Level; SPEC'M 10/27/16 01:43 Test: SALICYLATE LEVEL; Value: < 1.7; Range: 5.0-30.0; Abnormal: Below low normal; Units: MG/DL; Status: F Lab Order: Thyroid Stimulating Hormone; SPEC'M 10/27/16 01:43 Test: THYROID STIMULATING HORMONE; Value: 0.246; Range: 0.358-3.740; Abnormal: Below low normal; Units: uIU/ML; Status: F Outcome: 10/27 10:36 Decision to Hospitalize by Provider. sd1 15:10 Discharge Assessment: patient administered narcotics - no. The following High Risk me3 Discharge criteria are identified: None. Admitted to Psych accompanied by tech, via wheelchair, with chart. Condition: stable. No special radiology studies were completed. Property left with pt per RNAnyi LPN. 15:12 Patient left the ED. me3 Signatures: Dispatcher [employer] EDMS Donna Jimenez MD MD sd1 Alejandro, Ale, PSA PSA ca Caitlin, Abdoul, PSA PSA cl Amita Phillips, Reg Reg gb Joellen, Shree, Security Aide Ewelinapf Tiff Mahmood,SOILS ANALYST SOILS ANALYST me3 Lupe Gutierrez, PSA PSA ml4 Nilson, Zoeamariano zo Lam Farris, TECHNICAL BUSINESS SYSTEMS ANALYST TECHNICAL BUSINESS SYSTEMS ANALYST kb5 Jose Carlos Valera, DO mm11 Serg Emery Shannon, RN RN sls1 Behzad Brewster jml1 Mary Sow,RINKU CAMARILLON Azalea Juarez Amber,RN RN af2 Chart Complete MTDD
--- NOTE | 2016-10-29 16:14 | EDDOCDS ---
Physician Documentation [facility] Name: John Conti Age: 26 yrs Sex: Male : 1990 Arrival Date: 10/26/2016 Time: 23:42 Bed [facility] Private MD: Disposition: 10/27/16 10:36 Hospitalization ordered by Mauri Garcia for Inpatient Admission. Preliminary diagnosis is Major depressive disorder, single episode, moderate. - Bed requested for Admit. - Status is Inpatient Admission. me3 - Condition is Stable. - Problem is new. - Symptoms are unchanged. Historical: - Allergies: No known drug Allergies; - Home Meds: 1. Zoloft 25 mg Oral tab Unknown - PMHx: Anxiety; anger; - PSHx: Hip Arthroplasty, Left; bilateral ankles; - Social history: Smoking status: Patient states was never smoker of tobacco. Patient uses alcohol patient/guardian reports recent binge of alcohol consumption. No barriers to communication noted, The patient speaks fluent Azerbaijani. - Family history: Not pertinent. - : The pt / caregiver states he / she is not on anticoagulants. Home medication list is obtained from the patient. - Exposure Risk Screening:: None identified. Vital Signs: 10/26 23:44 BP 132 / 88; Pulse 84; Resp 18; Temp 97.1(T); Pulse Ox 96% ; Weight 88.45 kg / 195 lbs; mas Height 6 ft. 0 in. (182.88 cm); Pain 0/10; 10/27 03:40 BP 144 / 85; Pulse 88; Resp 18; Temp 96.1(T); Pulse Ox 97% ; Pain 0/10; mas 10:30 Pain 0/10; me3 14:21 BP 143 / 91; Pulse 85; Resp 18; Temp 97.6(O); Pulse Ox 97% on R/A; Pain 2/10; jml1 15:12 BP 148 / 87; Pulse 77; Resp 18; Temp 96.2; Pulse Ox 98% ; me3 10/26 23:44 Body Mass Index 26.45 (88.45 kg, 182.88 cm) [facility] MDM: 01:37 Consult PFS/PSA/Adolescent Coordinator ordered. mm11 01:37 Consult PFS/PSA/Adolescent Coordinator: Patient's case requires discussion with on-call mm11 Psychiatrist ordered. 01:37 PSA/PFS to call Nursing Zipper Cutter, to enter patient data on [place] if patient mm11 involuntarily admitted or transferred for SI or HI ordered. 01:37 Confirm accurate psychiatric medication list and times of last dosage ordered. mm11 01:37 Detain Pt Until Medically/PFS Cleared ordered. mm11 01:37 Acetaminophen Level Ordered. EDMS 01:37 Basic Metabolic Profile Ordered. EDMS 01:37 Complete Blood Count Ordered. EDMS 01:37 Drug Eval Toxicology ED Only Ordered. EDMS 01:37 Ethyl Alcohol (ethanol) Ordered. EDMS 01:37 Liver Profile Ordered. EDMS 01:37 Salicylate Level Ordered. EDMS 01:37 Thyroid Stimulating Hormone Ordered. EDMS 03:09 Acetaminophen Level Reviewed. mm11 03:09 Ethyl Alcohol (ethanol) Reviewed. mm11 03:09 Salicylate Level Reviewed. mm11 03:09 Thyroid Stimulating Hormone Reviewed. mm11 03:09 Basic Metabolic Profile Reviewed. mm11 03:09 Complete Blood Count Reviewed. mm11 03:09 Drug Eval Toxicology ED Only Reviewed. mm11 03:09 Liver Profile Reviewed. mm11 04:17 REGULAR DIET PLASTIC CASTANEDA+DIET ordered. EDMS 04:22 Financial registration complete. [facility] 04:25 [facility] Payment Agreement was scanned into [employer] and attached to record. [facility] 09:41 Acetaminophen Tablet 650 mg PO once ordered. me3 09:49 Consult PFS/PSA/Adolescent Coordinator complete. ca 09:49 Consult PFS/PSA/Adolescent Coordinator: Patient's case requires discussion with on-call ca Psychiatrist complete. 09:49 PSA/PFS to call Nursing Zipper Cutter, to enter [place] if patient ca involuntarily admitted or transferred for SI or HI complete. 11:16 REGULAR DIET PLASTIC CASTANEDA+DIET ordered. EDMS 12:03 Admit to [facility]: ordered. EDMS 13:46 [facility] Legal paperwork was scanned into [employer] and attached to record. ml4 10/28 14:41 T-Sheet-- Draft Copy was scanned into [employer] and attached to record. gb Administered Medications: 10/27 09:46 Drug: Acetaminophen 650 mg [acetaminophen 325 mg tablet (2 tabs)] Route: PO; me3 10:30 Follow up: Pain 0/10 Adult; Response: Pain is resolved me3 Signatures: Dispatcher [employer] Donna Cannon MD MD sd1 Ale Allen, PSA PSA ca Amita Phillips, Reg Reg gb Tiff Mahmood,DIESEL ENGINE I PIPE FITTER DIESEL ENGINE I PIPE FITTER me3 Lupe Gutierrez, PSA PSA ml4 Jose Carlos Valera, DO DO mm11 Azalea Lee [facility] Sonali Live,RN RN af2 The chart was reviewed and I authenticate all verbal orders and agree with the evaluation and treatment provided.Attachments: 04:25 [facility] Payment Agreement [facility] 10/28 14:41 T-Sheet-- Draft Copy gb Chart Complete MTDD
--- NOTE | 2016-10-29 16:14 | EDDOCDS ---
Physician Documentation [facility] Name: John Conti Age: 26 yrs Sex: Male : 1990 Arrival Date: 10/26/2016 Time: 23:42 Bed [facility]5 Private MD: Disposition: 10/27/16 10:36 Hospitalization ordered by Mauri Garcia for Inpatient Admission. Preliminary diagnosis is Major depressive disorder, single episode, moderate. - Bed requested for Admit. - Status is Inpatient Admission. me3 - Condition is Stable. - Problem is new. - Symptoms are unchanged. Historical: - Allergies: No known drug Allergies; - Home Meds: 1. Zoloft 25 mg Oral tab Unknown - PMHx: Anxiety; anger; - PSHx: Hip Arthroplasty, Left; bilateral ankles; - Social history: Smoking status: Patient states was never smoker of tobacco. Patient uses alcohol patient/guardian reports recent binge of alcohol consumption. No barriers to communication noted, The patient speaks fluent Maltese. - Family history: Not pertinent. - : The pt / caregiver states he / she is not on anticoagulants. Home medication list is obtained from the patient. - Exposure Risk Screening:: None identified. Vital Signs: 10/26 23:44 BP 132 / 88; Pulse 84; Resp 18; Temp 97.1(T); Pulse Ox 96% ; Weight 88.45 kg / 195 lbs; mas Height 6 ft. 0 in. (182.88 cm); Pain 0/10; 10/27 03:40 BP 144 / 85; Pulse 88; Resp 18; Temp 96.1(T); Pulse Ox 97% ; Pain 0/10; mas 10:30 Pain 0/10; me3 14:21 BP 143 / 91; Pulse 85; Resp 18; Temp 97.6(O); Pulse Ox 97% on R/A; Pain 2/10; jml1 15:12 BP 148 / 87; Pulse 77; Resp 18; Temp 96.2; Pulse Ox 98% ; me3 10/26 23:44 Body Mass Index 26.45 (88.45 kg, 182.88 cm) [facility] MDM: 01:37 Consult PFS/PSA/Tank Stave Assembler ordered. mm11 01:37 Consult PFS/PSA/Tank Stave Assembler: Patient's case requires discussion with on-call mm11 Psychiatrist ordered. 01:37 PSA/PFS to call Nursing Business Systems Administrator, to enter [place] data [place] if patient mm11 involuntarily admitted or transferred for SI or HI ordered. 01:37 Confirm accurate psychiatric medication list and times of last dosage ordered. mm11 01:37 Detain Pt Until Medically/PFS Cleared ordered. mm11 01:37 Acetaminophen Level Ordered. EDMS 01:37 Basic Metabolic Profile Ordered. EDMS 01:37 Complete Blood Count Ordered. EDMS 01:37 Drug Eval Toxicology ED Only Ordered. EDMS 01:37 Ethyl Alcohol (ethanol) Ordered. EDMS 01:37 Liver Profile Ordered. EDMS 01:37 Salicylate Level Ordered. EDMS 01:37 Thyroid Stimulating Hormone Ordered. EDMS 03:09 Acetaminophen Level Reviewed. mm11 03:09 Ethyl Alcohol (ethanol) Reviewed. mm11 03:09 Salicylate Level Reviewed. mm11 03:09 Thyroid Stimulating Hormone Reviewed. mm11 03:09 Basic Metabolic Profile Reviewed. mm11 03:09 Complete Blood Count Reviewed. mm11 03:09 Drug Eval Toxicology ED Only Reviewed. mm11 03:09 Liver Profile Reviewed. mm11 04:17 REGULAR DIET PLASTIC CASTANEDA+DIET ordered. EDMS 04:22 Financial registration complete. [facility] 04:25 [facility] Payment Agreement was scanned into [employer] and attached to record. [facility] 09:41 Acetaminophen Tablet 650 mg PO once ordered. me3 09:49 Consult PFS/PSA/Tank Stave Assembler complete. ca 09:49 Consult PFS/PSA/Tank Stave Assembler: Patient's case requires discussion with on-call ca Psychiatrist complete. 09:49 PSA/PFS to call Nursing Business Systems Administrator, to enter [place] if patient ca involuntarily admitted or transferred for SI or HI complete. 11:16 REGULAR DIET PLASTIC CASTANEDA+DIET ordered. EDMS 12:03 [facility] to [facility]: ordered. EDMS 13:46 [facility] Legal paperwork was scanned into [employer] and attached to record. ml4 10/28 14:41 T-Sheet-- Draft Copy was scanned into [employer] and attached to record. gb Administered Medications: 10/27 09:46 Drug: Acetaminophen 650 mg [acetaminophen 325 mg tablet (2 tabs)] Route: PO; me3 10:30 Follow up: Pain 0/10 Adult; Response: Pain is resolved me3 Signatures: Dispatcher [employer] Donna Cannon MD MD sd1 Ale Allen, PSA PSA ca Amita Phillips, Reg Reg gb Tiff Mahmood,PIN DRAFTING MACHINE OPERATOR PIN DRAFTING MACHINE OPERATOR me3 Lupe Gutierrez, PSA PSA ml4 Jose Carlos Valera, DO DO mm11 Azalea Lee [facility] Sonali Live,RN RN af2 The chart was reviewed and I authenticate all verbal orders and agree with the evaluation and treatment provided.Attachments: 04:25 [facility] [place] Agreement [facility] 10/28 14:41 T-Sheet-- Draft Copy gb Chart Complete MTDD
[2016-10-29 18:00] VITALS: BP 137/64
--- NOTE | 2016-10-29 18:03 | IPNPDOC ---
[facility] Progress Note Progress Note DATE OF SERVICE: 10/29/16 HISTORY: Power Operator met with patient today to evaluate treatment progress on inpatient unit. 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 Patient took his first dose of Prozac 20 mg this morning, indicates he experienced fatigue after taking 10 mg yesterday, today denies all medication side effects. Patient informs scenario writer he has been struggling with sleep due to noise on unit, was reminded he has trazodone available to him should he elect to take medication to improve sleep. Patient reports current anxiety level of 3/10, depression 0/10 , denies suicidal and homicidal ideation, denies audiovisual hallucinations, and denies urge to engage in self-injurious behavior. Patient remains unable to tell scenario writer what happened prior to his being found attempting to jump off a bridge by police, reiterates today he has never been suicidal, denies concerns related to his inability to remember events prior to recent suicide attempt. Patient denies challenges with appetite, concentration and focus, notes energy level is stabilizing. Patient has been visible on unit, attending groups, and is cooperative with staff. She denies physical pain at time of interaction. VITAL SIGNS: See below. NEW TEST RESULTS: No new test results. PA note indicates recheck for TSH, results not yet available in EMR. Labs completed on admission within normal limits with exception of low TSH. BAL 0.188 on admission. CURRENT MEDICATIONS: See below. 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 Speech: Is of normal rate, rhythm, volume, coherent, spontaneous Language skills are intact. Thought processes: Clear, goal-directed. Thought content: Rational, logical, no paranoia noted. Abstract reasoning: Appears intact Description of associations: Intact. Description of abnormal or psychotic thoughts: Denies hallucinations, delusions , preoccupation with violence, homicidal or suicidal ideation, and obsessions]. Judgment: Fair. Insight: Limited. Orientation to time, place and person Recent and remote memory: Intact Attention span and concentration: Adequate. Language: Normal. Fund of knowledge: Adequate. Mood: "Ok," appears anxious, no irritability, agitation, mood lability noted. Affect: Mild constriction, no brightening today, generally congruent with affect. 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 Patient continues to slowly adjust to unit. Patient is fixated on discharge and expresses concerns about being placed on a no weapons profile post discharge from hospital. Patient minimizes the events which led to his current hospitalization, informs scenario writer he has never had a problem with alcohol before and denies history of other substance use or abuse. Per restorative coordinator, patient had apparently declined to sign an HAILEE enabling contact with girlfriend , patient today indicates he is willing to sign release. Patient reports sleep challenges, is reminded he has trazodone available to him for sleep as needed. Will monitor patient's response to Prozac, monitor for side effects, evaluate patient's safety, resolution of suicidal thinking, and discharge readiness. Patient reiterates today that his discharge plan will be to return to [place] to participate in outpatient psychotherapy and medication management, verbalizes awareness that recommendation will be made for him to participate in the [facility] program as well. MANAGEMENT PLAN: Continue Prozac 20 mg po q am Maintain safety precautions Patient to attend groups and participate in unit programming to develop coping strategies Engage patient in discharge planning process and arrange meeting with command to ensure safe discharge planning when appropriate Patient to follow up with [place] PCM upon discharge TIME SPENT: 25 minutes. Vital Signs Vital Signs Date Time Temp Pulse Resp B/P Pulse Ox O2 Delivery O2 Flow Rate FiO2 10/29/16 06:50 97.4 64 20 114/71 10/28/16 08:56 Room Air 10/27/16 16:15 96 Current Medications Current Medications Acetaminophen (Tylenol Tab) 650 mg Q6HP PRN PO HEADACHE or DISCOMFORT; Start at 16:15; Stop 11/26/16 at 16:14 Fluoxetine HCl (PROzac) 20 mg QAM PO Last administered on 10/29/16t 09:32; Start 10/29/16 at 09:00; Stop 11/28/16 at 08:59 Home Med (Med Rec Complete!) ASDIRECTED XX ; Start 10/27/16 at 11:00; Stop at 11:06; Status DC Hydroxyzine HCl (Atarax) 50 mg Q6HP PRN PO ANXIETY; Start 10/28/16 at 15:30; Stop 11/27/16 at 15:29 Ibuprofen (Advil) 400 mg Q6HP PRN PO PAIN; Start 10/27/16 at 16:15; Stop at 16:14 Magnesium Hydroxide (Milk Of Magnesia) 30 ml DAILYPRN PRN PO CONSTIPATION; Start 10/27/16 at 16:15; Stop 11/26/16 at 16:14 Trazodone HCl (Desyrel) 50 mg QHSP PRN PO INSOMNIA; Start 10/28/16 at 15:30; Stop 11/27/16 at 15:29 Trazodone HCl (Desyrel) 100 mg QHSP PRN PO INSOMNIA; Start 10/27/16 at 16:15; Stop 10/28/16 at 15:22; Status DC Allergies Coded Allergies: Penicillins (Unverified Allergy, Unknown, HIVES, 10/27/16) Sandra Ludwig Oct 29, 2016 18:03
[2016-10-30 06:50] VITALS: BP 119/56
[2016-10-30] MEDS: FLUoxetine 20 MG CAP PO SCH (09:14)
--- NOTE | 2016-10-30 14:17 | IPNPDOC ---
[facility] Progress Note Progress Note DATE OF SERVICE: 10/30/16 HISTORY: Tool Trouble Shooter met with patient today to evaluate treatment progress on inpatient unit. 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 Patient is observed to be resting in bed, took second dose of Prozac 20 mg this morning, denies medication side effects and indicates he feels "calmer." Patient states he was having difficulty falling asleep last night and took trazodone with good effect , reports mild symptoms of a.m. grogginess, indicates side effects are manageable, reports notable improvement to sleep and denies nightmare symptoms. Patient today denies symptoms of anxiety and depression, denies suicidal and homicidal ideation, denies audiovisual hallucinations, and denies urge to engage in self-injurious behavior. Patient remains unable to tell caption writer what happened prior to his being found attempting to jump off a bridge by police, reiterates today he has never been suicidal, denies concerns related to his inability to remember events prior to recent suicide attempt. Patient also denies symptoms of avoidance, negative cognitions, hypervigilance, and reexperiencing. Patient denies challenges with appetite, concentration and focus , notes energy level is stabilizing. Patient has been visible on unit, attending groups, and is cooperative with staff. Patient denies physical pain at time of interaction. Per marketing proposal coordinator, apparently last night patient's girlfriend called facility irate that patient remains in the hospital and apparently made accusations hospital is attempting to keep patient in inpatient environment for financial gain. Tool Trouble Shooter has made multiple attempts to discuss seriousness of patient being on bridge, apparent attempts to jump from bridge, and the 50 minute length of time that it took for police to talk him down from bridge, combined with patient's refusal until recently to sign consent for marketing proposal coordinator to communicate with girlfriend to evaluate safe discharge planning. Patient today verbalizes understanding and recently agreed to sign an HAILEE. bariatric program coordinator also communicated with [employer] NCM who indicates [employer]'s concern patient may be experiencing symptoms of PTSD. Patient is aware chain of command meeting has been scheduled for Wednesday with discharge likely to occur soon thereafter. VITAL SIGNS: See below. NEW TEST RESULTS: No new test results. PA note indicates recheck for TSH, results not yet available in EMR. Labs completed on admission within normal limits with exception of low TSH. BAL 0.168 on admission. Patient denies history of TBI and seizure, indicates he has never experienced blackouts or memory lapses prior to recent episode. Clinical consultation completed, caption writer informed no indication for EEG or CT. EKG pending CURRENT MEDICATIONS: See below. 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 Speech: Is of normal rate, rhythm, volume, coherent, spontaneous Language skills are intact. Thought processes: Clear, goal-directed. Thought content: Rational, logical, no paranoia noted. Abstract reasoning: Appears intact Description of associations: Intact. Description of abnormal or psychotic thoughts: Denies hallucinations, delusions , preoccupation with violence, homicidal or suicidal ideation, and obsessions]. Judgment: Fair. Insight: Limited. Orientation to time, place and person Recent and remote memory: Intact Attention span and concentration: Adequate. Language: Normal. Fund of knowledge: Adequate. Mood: "Ok, pretty good," appears anxious, no irritability, agitation, mood lability noted. Affect: Mild constriction, no brightening today, generally congruent with affect. 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 Patient continues to adjust to unit. Patient continues to minimize events which led to his current hospitalization, reiterates he has never had a problem with alcohol before and denies history of other substance use or abuse. Patient reports improvement to sleep with use of PRN medication, denies nightmares. Patient feels Prozac is helping to improve mood and reduce anxiety, currently denies suicidal and homicidal ideation and verbalizes awareness of how to access supportive services on the unit if needed. Will monitor patient's response to medications, monitor for side effects, evaluate patient's safety, resolution of suicidal thinking, and discharge readiness. Patient reiterates today that his discharge plan will be to return to [place] to participate in outpatient psychotherapy and medication management, verbalizes awareness that recommendation will be made for him to participate in the [facility] program as well. MANAGEMENT PLAN: Continue Prozac 20 mg po q am, trazodone 50 mg po hs PRn insomnia Maintain safety precautions Patient to attend groups and participate in unit programming to develop coping strategies Engage patient in discharge planning process and arrange meeting with command to ensure safe discharge planning when appropriate Patient to follow up with [place] PCM upon discharge TIME SPENT: 25 minutes. Vital Signs Vital Signs Date Time Temp Pulse Resp B/P Pulse Ox O2 Delivery O2 Flow Rate FiO2 10/30/16 06:50 95.6 57 20 119/56 10/28/16 08:56 Room Air 10/27/16 16:15 96 Current Medications Current Medications Acetaminophen (Tylenol Tab) 650 mg Q6HP PRN PO HEADACHE or DISCOMFORT; Start at 16:15; Stop 11/26/16 at 16:14 Fluoxetine HCl (PROzac) 20 mg QAM PO Last administered on 10/30/16 09:14; Start 10/29/16 at 09:00; Stop 11/28/16 at 08:59 Home Med (Med Rec Complete!) ASDIRECTED XX ; Start 10/27/16 at 11:00; Stop at 11:06; Status DC Hydroxyzine HCl (Atarax) 50 mg Q6HP PRN PO ANXIETY; Start 10/28/16 at 15:30; Stop 11/27/16 at 15:29 Ibuprofen (Advil) 400 mg Q6HP PRN PO PAIN; Start 10/27/16 at 16:15; Stop at 16:14 Magnesium Hydroxide (Milk Of Magnesia) 30 ml DAILYPRN PRN PO CONSTIPATION; Start 10/27/16 at 16:15; Stop 11/26/16 at 16:14 Trazodone HCl (Desyrel) 50 mg QHSP PRN PO INSOMNIA Last administered on 22:01; Start 10/28/16 at 15:30; Stop 11/27/16 at 15:29 Trazodone HCl (Desyrel) 100 mg QHSP PRN PO INSOMNIA; Start 10/27/16 at 16:15; Stop 10/28/16 at 15:22; Status DC Allergies Coded Allergies: Penicillins (Unverified Allergy, Unknown, HIVES, 10/27/16) Sandra Ludwig Oct 30, 2016 14:17
--- NOTE | 2016-10-30 17:06 | ECGEPIP ---
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 S1 S2 S3 pattern, consider lung disease or obesity. No prior ECG available for comparison at the time of interpretation. Electronically Signed On 10-30-2016 16:54:19 EST by Rashard Hebert
[2016-10-30 18:00] VITALS: BP 174/90
[2016-10-31 06:31] VITALS: BP 129/68
[2016-10-31 07:53] LABS: THYROXINE (T4) 8.5 UG/DL (4.5-12.0)
[2016-10-31] MEDS: FLUoxetine 20 MG CAP PO SCH (09:12)
[2016-10-31 18:33] VITALS: BP 145/87
--- NOTE | 2016-10-31 20:22 | IPNPDOC ---
[facility] Progress Note Progress Note DATE OF SERVICE: 10/31/16 SUBJECTIVE: Patient visible in the milieu, social. He calmly explains to this provider from his perspective why his behavior was purely alcohol induced. Patient reports to this provider no prior suicidal behavior. Patient is anxious but cooperative with interview. He reports increasing mood since admission. He denies SI/HI and AH/VH. He denies binge drink pattern hx and denies current alcohol w/d symptoms. Patient reports fair sleep and appetite. Patient reports he will wait till Wednesday to discuss his discharge as the hospital does not discharge over the weekend. OBJECTIVE: VITAL SIGNS: See below. NEW TEST RESULTS: see below. CURRENT MEDICATIONS: See below. 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 Speech: Is of normal rate, rhythm, volume, coherent, spontaneous Language skills are intact. Thought processes: Clear, goal-directed. Thought content: Rational, logical, no paranoia noted. Description of abnormal or psychotic thoughts: Denies hallucinations, delusions , preoccupation with violence, homicidal or suicidal ideation, and obsessions, nor were any observed during this exam.]. Judgment: Fair. Insight: Fair. Orientation to time, place and person Recent and remote memory: Intact Attention span and concentration: good. Language: Normal. Fund of knowledge: Adequate. Mood: "Ok, pretty good," appears anxious, no irritability, agitation, mood lability noted. Affect: full ASSESSMENT: 1. Depressive d/o unspecified; r/o alcohol induced mood disorder 2. Alcohol use d/o 3. Rule out PTSD per hx PLAN: 1. Continue close observation. 2. Continue current psychotropic med regimen. 3. Continue with individual and group therapy. TIME SPENT: 30 minutes Vital Signs Vital Signs Date Time Temp Pulse Resp B/P Pulse Ox O2 Delivery O2 Flow Rate FiO2 10/31/16 18:33 97.3 77 16 145/87 10/28/16 08:56 Room Air 10/27/16 16:15 96 Laboratory Data 24H Labs Laboratory Tests 2 10/31/16 06:55: Free Thyroxine Index 3.1, Thyroid Stimulating Hormone (TSH) 0.815, Thyroxine (T4 ) 8.5, Triiodothyronine (T3) Uptake 37 Current Medications Current Medications Acetaminophen (Tylenol Tab) 650 mg Q6HP PRN PO HEADACHE or DISCOMFORT; Start at 16:15; Stop 11/26/16 at 16:14 Fluoxetine HCl (PROzac) 20 mg QAM PO Last administered on 10/31/16 09:12; Start 10/29/16 at 09:00; Stop 11/28/16 at 08:59 Home Med (Med Rec Complete!) ASDIRECTED XX ; Start 10/27/16 at 11:00; Stop at 11:06; Status DC Hydroxyzine HCl (Atarax) 50 mg Q6HP PRN PO ANXIETY; Start 10/28/16 at 15:30; Stop 11/27/16 at 15:29 Ibuprofen (Advil) 400 mg Q6HP PRN PO PAIN; Start 10/27/16 at 16:15; Stop at 16:14 Magnesium Hydroxide (Milk Of Magnesia) 30 ml DAILYPRN PRN PO CONSTIPATION; Start 10/27/16 at 16:15; Stop 11/26/16 at 16:14 Trazodone HCl (Desyrel) 50 mg QHSP PRN PO INSOMNIA Last administered on 22:01; Start 10/28/16 at 15:30; Stop 11/27/16 at 15:29 Trazodone HCl (Desyrel) 100 mg QHSP PRN PO INSOMNIA; Start 10/27/16 at 16:15; Stop 10/28/16 at 15:22; Status DC Allergies Coded Allergies: Penicillins (Unverified Allergy, Unknown, HIVES, 10/27/16) SANJEEV GARNER MD Oct 31, 2016 20:22
[2016-11-01 06:39] VITALS: BP 139/78
[2016-11-01] MEDS: FLUoxetine 20 MG CAP PO SCH (09:25)
[2016-11-01 18:00] VITALS: BP 133/61
[2016-11-02 06:47] VITALS: BP 118/71
[2016-11-02] MEDS: FLUoxetine 20 MG CAP PO SCH (08:55)
--- NOTE | 2016-11-02 15:07 | IPN ---
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 MEDICATIONS: - Prozac 20 mg by mouth every morning - trazodone 50 mg by mouth at bedtime as needed for insomnia SUBJECTIVE: "I'm ready to go home." OBJECTIVE: The patient denies suicidal or homicidal ideation. There is no evidence of auditory or visual hallucinations or delusions. The patient denies any feelings of depression. He is focused on discharge. The patient does not have psychomotor retardation. He is able to smile and is socializing well with peers and staff. MENTAL STATUS EXAMINATION: The patient is dressed in [facility]. The patient is calm and cooperative during the interview. He has good eye contact. Speech is normal in rate, volume, articulation, is coherent and spontaneous. Mood is euthymic. Affect is congruent with mood. No delusions or hallucinations. Short and long-term memory are fair. The patient is fully oriented. Associations are intact. Thinking is logical. Thought content is appropriate. The patient is denying suicidal or homicidal ideation. Insight and judgment is fair. ASSESSMENT: 1. Adjustment disorder with depressed and anxious mood. 2. Substance-induced mood disorder. 3. Alcohol abuse. PLAN: 1. He will be discharged tomorrow if he continues improving. 2. Continue with Prozac 20 mg by mouth every morning. 3. Continue with trazodone as needed for insomnia.
[2016-11-02 18:00] VITALS: BP 170/96
[2016-11-03 06:52] VITALS: BP 129/94
[2016-11-03] MEDS: FLUoxetine 20 MG CAP PO SCH (08:34)
[2016-11-03] MEDS ORDERED: FLUO20CA9 PO (09:03)
--- NOTE | 2016-11-03 21:24 | DS.PDOC ---
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 Patient states he had been out to lunch with friends and had had 3 cocktails, adds he and friends continued to drink throughout the day, with back to friend's apartment, laid down, and at some point got up and walked to a nearby bridge. Patient indicates he remembers nothing of the event. Per ER records, patient was threatening to jump off bridge in an intoxicated state and police spent 50 minutes trying to stop patient from jumping. Patient rates current anxiety level as 6/10, depression 2/10, denies suicidal and homicidal ideation, denies audiovisual hallucinations, denies urge to engage in self-injurious behavior. Patient states to medical underwriter, "I've been trying to piece things together and I just can't make sense of it, I must of blacked out, I've never done anything like that before." Patient indicates he has been experiencing an increase in symptoms of anxiety related to pending divorce from second marriage, relationship stress, financial strain. Patient denies history of suicide attempt, suicidal ideation, and self-injurious behavior. Patient reports discomfort in large crowds but denies social anxiety type symptoms, denies panic, impulse control, compulsive behaviors, further denies history of unsanctioned violence and states outside of work he has no access to weapons. Patient denies symptoms of reexperiencing, negative cognitions, avoidance, or hypervigilance. Patient indicates his mood is level and he denies a history of lability, hypomania, or korin symptoms, states his appetite is normal. Patient indicates he sleeps 4-5 hours a night and describes his sleep pattern as " normal for me," states he does not feel well if he sleeps more than 5 or 6 hours per night, denies nightmares symptoms and denies challenges with sleep latency or maintenance. Patient indicates he has been in the for 9 years, with 2 deployments to [place], was previously stationed in [place] and relocated to [place] in June,. Patient states while stationed in [place] he sought treatment through outpatient behavioral health and was prescribed Zoloft to address symptoms of anxiety and anger and trazodone to address sleep challenges , states he had been taking medication since 2010. Patient indicates he stopped taking medication approximately 4 months ago due to lack of need, also states he was experiencing side effects of apathy and "head zaps." Patient denies recently experiencing symptoms of anger or unmanageable anxiety for the past year. Patient expresses concern during today's assessment noting he is scheduled to go to [facility] 11/12/16, indicates he wants to go and is afraid he will be put on a no weapons profile. PAST PSYCHIATRIC HISTORY: Prior Psychiatric Disorder: Patient indicates he participated in outpatient treatment in [place] for anger and anxiety Outpatient Treatment: Patient behavioral health through the [employer] in [place] from 2010 until 2014. Suicidal/Self injurious: Patient denies history of self-harm, suicide attempt, further indicates he is never experienced suicidal ideation. Psychotropic Medication History: Trazodone - no medication side effects. Zoloft - flat affect, "jar to the head" type symptoms MEDICAL/SURGICAL HISTORY: Patient denies history of seizure or head injury, indicated she has never experienced blackouts or memory lapses prior to recent isolated episode which occurred while patient was intoxicated. Patient reports history of hip arthroplasty. Labs within normal limits on admission with exception of TSH which was low, within normal limits on recheck. BAL on admission 0.168 EKG 10/30/16 SINUS RHYTHM, Leftward axis. S1 S2 S3 pattern, consider lung disease or obesity, PA aware and recommending follow-up with PCM post discharge FAMILY PSYCHIATRIC HISTORY: Sisters - bipolar disorder Patient denies family history of suicide attempt SOCIAL HISTORY: Patient was born and raised in the [place], [place], area, raised by his mother, indicates he has only periodic contact with his biological father who lives [facility]. Patient denies history of abuse, trauma , or witnessing domestic violence in the home while growing up. Patient completed his GED, denies having work history prior to the , joined the [employer] at age 17 and [employer]. Patient has history of deployment to [place] 2, endorses combat exposure. Patient has been legally 1 year, has been 2, and is currently in divorce process with second , has a girlfriend with whom he is been together on and off and has a 1-year- old son, also has a 5-year-old son with whom he has no contact from previous relationship. Patient indicates he feels he has adequate support system. SUBSTANCE ABUSE HISTORY: Patient reports monthly alcohol use, indicates he consumes approximately 1-2 drinks per drinking episode, denies history of other substance use or abuse. LEGAL HISTORY: Patient indicates he was arrested for grand larceny which was reduced to barlow larceny which was reduced to disorderly conduct as a teenager, denies other legal challenges. Patient has pending divorce. TREATMENT PROGRESS ON UNIT: Patient has adjusted to inpatient treatment environment, has attended groups, and has engaged appropriately with peers. Patient initially declined to sign consents for the release of information permitting offensive coordinator to collect collateral information in preparation for discharge. Patient has progressively been able to verbalize the extent of his alcohol intoxication and understanding of the gravity events which led up to his current hospitalization. Patient denies having memory of his being intoxicated on a bridge, threatening to jump off, and requiring 50 minutes of police intervention to get him to come down from the bridge. Patient has consistently denied ever being suicidal, states today he realizes that if he consumes alcohol he will not being able to predict impact on his judgment or his behavior. Patient is being strongly recommended to participate in the [facility] program at [place]. Patient denies physical pain, denies challenges with concentration and focus, and states his appetite is stable. Patient has reported intermittent challenges with sleep, utilized Trazodone 1 during treatment with good effect, informs medical underwriter he does not have sleep challenges at home, denies nightmares, and declines prescription for sleep medication at discharge. Patient is currently taking Prozac 20 mg po daily, indicates medication is effective in reducing symptoms of anxiety and depression and he denies medication side effects. Patient denies suicidal and homicidal ideation, denies symptoms of anxiety and depression, denies audiovisual hallucinations, and denies urge to engage in self-injurious behavior. Meeting with chain of command has been completed and patient's girlfriend has been involved in the discharge planning process with no concerns expressed pertaining to patient's discharge. Patient is today requesting discharge with plan to return to [place] outpatient behavioral health for safety check and ongoing medication management and psychotherapy services. Recommendation is also being made for patient to be evaluated for IOP and referral to [facility]. Patient verbalizes understanding of and agreement with discharge plan. 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 Speech: Is of normal rate, rhythm, volume, coherent, spontaneous Language skills are intact. Thought processes: Clear, goal-directed. Thought content: Rational, logical, no paranoia noted. Abstract reasoning: Appears intact Description of associations: Intact. Description of abnormal or psychotic thoughts: Denies hallucinations, delusions , preoccupation with violence, homicidal or suicidal ideation, and obsessions]. Judgment: Adequate, has improved during inpatient treatment Insight: Adequate, has improved during inpatient treatment Orientation to time, place and person Recent and remote memory: Intact Attention span and concentration: Adequate. Language: Normal. Fund of knowledge: Adequate. Mood: "Fine, ready to discharge." No indication of anxiety, irritability, agitation, or mood lability noted Affect: Full range, and brightens easily and frequently, generally congruent with affect. CONDITION ON DISCHARGE: Stable, no suicidal or homicidal ideation DIAGNOSES ON DISCHARGE: Unspecified mood disorder, alcohol use disorder, rule out MDD, rule out adjustment disorder, rule out substance induced mood disorder , rule out PTSD MEDICATIONS ON DISCHARGE: See below FOLLOW UP PLAN: Continue Prozac 20 mg po q am Patient to be transported by command to [facility] behavioral health services to undergo safety check, initiate outpatient psychotherapy and medication management services, and be evaluated for IOP. Recommendation is also made for [facility] evaluation and program participation Patient to follow up with [facility] [facility] within 5-7 days of discharge The amount of time spent in the coordination of care for this patient was approximately 25 minutes. Vital Signs Vital Sign - Last 24 Hours 11/03/16 06:52 Temp 96.4 Pulse 60 Resp 16 B/P 129/94 Medications Scheduled Fluoxetine Hcl (Fluoxetine HCl) 20 Mg Cap #7 20 MG PO QAM MOOD Allergies Coded Allergies: Penicillins (Unverified Allergy, Unknown, HIVES, 10/27/16) Sandra Ludwig Nov 03, 2016 21:24
== END 2016-11-03 09:20 | disposition home or self-care (01) | DRG 885 ==
LOC: M ED 23:42 → M PSY 10-27 15:26
PROVIDERS: ADMIT Psychiatry & Neurology Psychiatry; ATTEND Psychiatry & Neurology Psychiatry
DX: F39 Unspecified mood [affective] disorder (principal); Z88.0 Allergy status to penicillin; F43.20 Adjustment disorder, unspecified; F19.94 Other psychoactive substance use, unspecified with psychoactive substance-induced mood disorder; F10.10 Alcohol abuse, uncomplicated